=== PATIENT | male | born 1985 | race Caucasian/White ===

== ENCOUNTER 2018-03-03 15:11 | Inpatient (IN) | payer OTHER ==
[2018-03-03 16:47] VITALS: BMI 36.9
--- NOTE | 2018-03-03 17:03 | HP ---
CIWA Score Nausea/Vomitin (x 5) Muscle Tremors: 4-Moderate,w/Arms Extend Anxiety: 4-Mod. Anxious/Guarded Agitation: 3 Paroxysmal Sweats: 1-Minimal Palms Moist Orientation: 2-Disoriented Date<2 days Tacttile Disturbances: 0-None Auditory Disturbances: 0-None Visual Disturbances: 0-None Headache: 2-Mild CIWA-Ar Total Score: 19 - Admission Criteria OASAS Guidelines: Admission for Medically Managed Detox: Requires at least one of the followin. CIWA greater than 12 2. Seizures within the past 24 hours 3. Delirium tremens within the past 24 hours 4. Hallucinations within the past 24 hours 5. Acute intervention needed for co occurring medical disorder 6. Acute intervention needed for co occurring psychiatric disorder 7. Severe withdrawal that cannot be handled at a lower level of care (continued vomiting, continued diarrhea, abnormal vital signs) requiring intravenous medication and/or fluids 8. Admission ROS S - HPI Chief Complaint: Alcohol withdrawal symptoms Allergies/Adverse Reactions: Allergies Allergy/AdvReac Type Severity Reaction Status Date / Time propofol Allergy Verified 03/03/18 16:58 History of Present Illness: 32 years old male with a 20 years history of alcohol dependence is seeking admission to detox. Patient has been in previous detox, last at [facility] in [place] [facility]. Patient reports insignificant period of sobriety. He has medical history of asthma, seizure, anxiety and depression. Denies suicide attempt and suicidal ideation at this time. Exam Limitations: No Limitations - Ebola screening Have you traveled outside of the country in the last 21 days: No (N) Have you had contact with anyone from an Ebola affected area: No Have you been sick,other than usual withdrawal symptoms: No Do you have a fever: No - Review of Systems Constitutional: Malaise, Night Sweats, Changes in sleep EENT: reports: No Symptoms Reported Respiratory: reports: No Symptoms reported Cardiac: reports: No Symptoms Reported GI: reports: Diarrhea (x 5), Nausea, Poor Appetite, Poor Fluid Intake, Abdominal cramping : reports: No Symptoms Reported Musculoskeletal: reports: No Symptoms Reported Integumentary: reports: Dryness, Flushing Neuro: reports: Headache, Tremors Endocrine: reports: No Symptoms Reported Hematology: reports: No Symptoms Reported Psychiatric: reports: Anxious, Depressed Other Systems: Reviewed and Negative Patient History - Patient Medical History Hx Anemia: No Hx Asthma: Yes (Childhood Asthma -Not on medicaltion) Hx Chronic Obstructive Pulmonary Disease (COPD): No Hx Cancer: No Hx Cardiac Disorders: No Hx Congestive Heart Failure: No Hx Hypertension: No Hx Hypercholesterolemia: No HX Cerebrovascular Accident: No Hx Seizures: Yes (Not on medication) Hx Dementia: No Hx Diabetes: No Hx Gastrointestinal Disorders: No Hx Liver Disease: No Hx Genitourinary Disorders: No Hx Sexually Transmitted Disorders: No Hx Renal Disease (ESRD): No Hx Thyroid Disease: No Hx Human Immunodeficiency Virus (HIV): No (Negative ) Hx Hepatitis C: No Hx Depression: Yes (Zoloft) Hx Suicide Attempt: No (Denies suicide attempt and suicidal ideation at this time) Hx Bipolar Disorder: No Hx Schizophrenia: No Other Medical History: Anxiety - Not on medication - Patient Surgical History Past Surgical History: Yes Hx Abdominal Surgery: Yes (2011, 2015) Hx Orthopedic Surgery: Yes (Right hand surgery 1999 & 2005) Other Surgical History: Tonsillectomy 2006, - PPD History Previous Implant?: Yes Documented Results: Negative w/o proof Implanted On Prior R Admission?: No PPD to be Administered?: Yes - Reproductive History Patient is a Female of Child Bearing Age (11 -55 yrs old): No (Male) - Smoking Cessation Smoking history: Never smoked Have you smoked in the past 12 months: No Hx Chewing Tobacco Use: No Initiated information on smoking cessation: No Family Disease History - Family Disease History Family History: Denies Admission Physical Exam [facility] - Vital Signs Vital Signs: Vital Signs - 24 hr 03/03/18 16:46 Temperature 97.7 F Pulse Rate 113 H Respiratory 18 Rate Blood Pressure 160/105 H - Physical General Appearance: Yes: Moderate Distress, Tremorous, Irritable, Sweating, Anxious HEENTM: Yes: EOMI, Normocephalic, Normal Voice, BHUMIKA, Nasal Congestion Respiratory: Yes: Normal Breath Sounds, Labored Respiration, No Respiratory Distress Neck: Yes: Supple Breast: Yes: Breast Exam Deferred Cardiology: Yes: Tachycardia Abdominal: Yes: Normal Bowel Sounds Genitourinary: Yes: Within Normal Limits Back: Yes: Normal Inspection Musculoskeletal: Yes: Back pain, Muscle Pain Extremities: Yes: Normal Inspection Neurological: Yes: Alert, Normal Mood/Affect Integumentary: Yes: Warm Lymphatic: Yes: Within Normal Limits - Diagnostic (1) Uncomplicated alcohol dependence Current Visit: Yes Status: Chronic (2) Asthma Current Visit: Yes Status: Chronic Qualifiers: Asthma severity: mild Asthma persistence: intermittent (3) Depression Current Visit: Yes Status: Chronic Qualifiers: Depression Type: unspecified Qualified Code(s): F32.9 - Major depressive disorder, single episode, unspecified (4) Anxiety Current Visit: Yes Status: Chronic (5) Seizures Current Visit: Yes Status: Acute Cleared for Admission S - Detox or Rehab [facility] Level of Care: Medically Managed Detox Regimen/Protocol: Librium S Breath Alcohol Content Breath Alcohol Content: 0 Urine Drug Screen - Results Drug Screen Negative: Yes
[2018-03-03] MEDS ORDERED: MAG HYDROX/AL HYDROX/SIMETH 30 ML UNIT-DOSE CUP PO PRN (17:14)
[2018-03-03] MEDS ORDERED: P-EPHED 60MG/TRIPROLIDI 2.5MG TABLET PO PRN (17:14)
[2018-03-03] MEDS ORDERED: MENTHOL/PHENOL 1 EACH UD MM PRN (17:14)
[2018-03-03] MEDS ORDERED: MAGNESIUM CITRATE 300 ML BOTTLE PO PRN (17:14)
[2018-03-03] MEDS ORDERED: chlordiazePOXIDE HCL 25 MG CAPSULE PO PRN (17:14)
[2018-03-03] MEDS ORDERED: MAGNESIUM HYDROX 2400MG/30ML ORAL SUSPENSION 30 ML CUP PO PRN (17:14)
[2018-03-03] MEDS ORDERED: IBUPROFEN 400 MG TABLET (FP) PO PRN (17:14)
[2018-03-03] MEDS ORDERED: LOPERAMIDE HCL 2 MG CAPSULE PO PRN (17:14)
[2018-03-03] MEDS ORDERED: guaiFENesin/D-METHORPHAN HB 10 ML UNIT-DOSE CUPS PO PRN (17:14)
[2018-03-03] MEDS ORDERED: ACETAMINOPHEN 325 MG TABLET (FP) PO PRN (17:14)
[2018-03-03] MEDS: THIAMINE HCL 100 MG TABLET (FP) PO SCH (22:25)
[2018-03-03] MEDS: chlordiazePOXIDE HCL 25 MG CAPSULE PO SCH (22:26)
[2018-03-03] MEDS: MELATONIN 5 MG TABLETS PO PRN (22:26)
[2018-03-04] MEDS: chlordiazePOXIDE HCL 25 MG CAPSULE PO SCH ×4 (05:07→22:43)
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
[2018-03-04] MEDS: PRENATAL VITAMINS W/ FOLIC ACID TABLET (FP) PO SCH (10:27)
[2018-03-04] MEDS ORDERED: hydrOXYzine PAMOATE 50 MG CAPSULE (FP) PO PRN (10:44)
[2018-03-04 11:14] LABS: ALBUMIN 3.9 g/dl (3.4-5.0); ALK PHOS 125 U/L (45-117); ANION GAP 9 MMOL/L (8-16); BILIRUBIN,TOTAL 0.7 mg/dL (0.2-1); BLOOD UREA NITROGEN 23 mg/dL (7-18); CALCIUM 8.9 mg/dL (8.5-10.1); CHLORIDE 104 mmol/L (98-107); CO2 24 mmol/L (21-32); CREATININE 0.8 mg/dL (0.55-1.3); GLUCOSE,RANDOM 100 mg/dL (74-106); POTASSIUM 4.4 mmol/L (3.5-5.1); SGOT/AST 17 U/L (15-37); SGPT/ALT 38 U/L (13-61); SODIUM 138 mmol/L (136-145); TOT PROT 7.1 g/dl (6.4-8.2)
[2018-03-04 11:20] LABS: HEMATOCRIT 43.5 % (35.4-49); HEMOGLOBIN 15.2 GM/dL (11.7-16.9); MCH 28.6 pg (25.7-33.7); MCHC 34.9 g/dl (32.0-35.9); MEAN CELL VOLUME 81.9 fl (80-96); MEAN PLT VOLUME 8.1 fl (7.5-11.1); PLATELET COUNT 221 K/MM3 (134-434); RBC 5.32 M/mm3 (4.00-5.60); RDW 14.6 % (11.9-15.9); WHITE BLOOD COUNT 8.1 K/mm3 (4.0-10.0)
[2018-03-04] MEDS: SERTRALINE HCL 50 MG TABLET (FP) PO SCH (11:52)
[2018-03-04] MEDS: QUEtiapine FUMARATE 50 MG TABLET PO SCH ×2 (11:52→22:43)
[2018-03-04] MEDS ORDERED: cloNIDine HCL 0.1 MG TABLET PO PRN (17:01)
--- NOTE | 2018-03-04 17:01 | PN ---
S CIWA - CIWA Score Nausea/Vomitin Muscle Tremors: 4-Moderate,w/Arms Extend Anxiety: 4-Mod. Anxious/Guarded Agitation: 4-Moderately Restless Paroxysmal Sweats: 3 Orientation: 0-Oriented Tacttile Disturbances: 0-None Auditory Disturbances: 0-None Visual Disturbances: 0-None Headache: 0-None Present CIWA-Ar Total Score: 17 [facility] Progress Note (SOAP) Subjective: Anxious, insomnia x 4 days, tremor, sweating. Patient stated he takes seroquel at night and didn't receive it as yet Objective: 03/04/18 16:57 Last Vital Signs Temp Pulse Resp BP Pulse Ox 99.1 F 98 H 18 160/98 03/04/18 14:31 03/04/18 14:31 03/04/18 14:31 03/04/18 14:31 Elevated b/p: 160/98 (denies htn) Laboratory Tests 03/04/18 03/04/18 03/04/18 07:20 07:20 07:20 WBC 8.1 RBC 5.32 Hgb 15.2 Hct 43.5 MCV 81.9 MCH 28.6 MCHC 34.9 RDW 14.6 Plt Count 221 MPV 8.1 Sodium 138 Potassium 4.4 Chloride 104 Carbon Dioxide 24 Anion Gap 9 BUN 23 H Creatinine 0.8 Creat Clearance w eGFR > 60 Random Glucose 100 Calcium 8.9 Total Bilirubin 0.7 AST 17 ALT 38 Alkaline Phosphatase 125 H Total Protein 7.1 Albumin 3.9 RPR Titer Nonreactive Labs reviewed: bun 23 Assessment: 03/04/18 16:58 Withdrawal symptoms Noted with elevated blood pressure and azotemia Plan: Continue detox Elevated blood pressure: start clonidine 0.1mg PO q8hr prn if b/p > 140/90 Azotemia: encouraged PO water hydration
[2018-03-04] MEDS: THIAMINE HCL 100 MG TABLET (FP) PO SCH (22:43)
[2018-03-04] MEDS: SUVOREXANT 10 MG TABLET PO PRN (22:44)
[2018-03-05] MEDS: chlordiazePOXIDE HCL 25 MG CAPSULE PO SCH ×3 (05:45→17:44)
[2018-03-05] MEDS: PRENATAL VITAMINS W/ FOLIC ACID TABLET (FP) PO SCH (10:34)
[2018-03-05] MEDS: SERTRALINE HCL 50 MG TABLET (FP) PO SCH (10:34)
[2018-03-05] MEDS: QUEtiapine FUMARATE 50 MG TABLET PO SCH ×2 (10:34→22:07)
--- NOTE | 2018-03-05 12:25 | PN ---
[facility] CIWA - CIWA Score Nausea/Vomitin-No Nausea/No Vomiting Muscle Tremors: 4-Moderate,w/Arms Extend Anxiety: 2 Agitation: 3 Paroxysmal Sweats: 2 Orientation: 0-Oriented Tacttile Disturbances: 0-None Auditory Disturbances: 0-None Visual Disturbances: 0-None Headache: 0-None Present CIWA-Ar Total Score: 11 S Progress Note (SOAP) Subjective: anxiety sweats interrupted sleep Objective: 03/05/18 12:25 Vital Signs Temperature 98.2 F 03/05/18 09:28 Pulse Rate 93 H 03/05/18 09:28 Respiratory Rate 18 03/05/18 09:28 Blood Pressure 137/75 03/05/18 09:28 O2 Sat by Pulse Oximetry (%) Laboratory Tests 03/04/18 03/04/18 03/04/18 07:20 07:20 07:20 WBC 8.1 RBC 5.32 Hgb 15.2 Hct 43.5 MCV 81.9 MCH 28.6 MCHC 34.9 RDW 14.6 Plt Count 221 MPV 8.1 Sodium 138 Potassium 4.4 Chloride 104 Carbon Dioxide 24 Anion Gap 9 BUN 23 H Creatinine 0.8 Creat Clearance w eGFR > 60 Random Glucose 100 Calcium 8.9 Total Bilirubin 0.7 AST 17 ALT 38 Alkaline Phosphatase 125 H Total Protein 7.1 Albumin 3.9 RPR Titer Nonreactive aaox3 ambulating no acute distress Assessment: 03/05/18 12:25 withdrawal sx Plan: continue detox increase fluids
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
[2018-03-05] MEDS: BACITRACIN 0.9 GM PACKET TP SCH (15:28)
[2018-03-05] MEDS: SUVOREXANT 10 MG TABLET PO PRN (22:06)
[2018-03-05] MEDS: THIAMINE HCL 100 MG TABLET (FP) PO SCH (22:07)
[2018-03-05] MEDS: chlordiazePOXIDE 5 MG CAPSULE PO SCH (22:07)
[2018-03-06] MEDS: chlordiazePOXIDE 5 MG CAPSULE PO SCH ×3 (05:35→17:52)
--- NOTE | 2018-03-06 09:56 | PN ---
[facility] Progress Note (SOAP) Subjective: interrupted sleep sweats Objective: 03/06/18 09:55 Vital Signs Temperature 98.1 F 03/06/18 09:12 Pulse Rate 78 03/06/18 09:12 Respiratory Rate 18 03/06/18 09:12 Blood Pressure 127/87 03/06/18 09:12 O2 Sat by Pulse Oximetry (%) aaox3 ambulating no acute distress Assessment: 03/06/18 09:55 withdrawal sx Plan: continue detox increase fluids d/c in am
[2018-03-06] MEDS: BACITRACIN 0.9 GM PACKET TP SCH (10:23)
[2018-03-06] MEDS: PRENATAL VITAMINS W/ FOLIC ACID TABLET (FP) PO SCH (10:23)
[2018-03-06] MEDS: QUEtiapine FUMARATE 50 MG TABLET PO SCH ×2 (10:23→22:10)
[2018-03-06] MEDS: SERTRALINE HCL 50 MG TABLET (FP) PO SCH (10:24)
--- NOTE | 2018-03-06 15:52 | EKG ---
Test Reason : Blood Pressure : / mmHG Vent. Rate : 084 BPM Atrial Rate : 084 BPM P-R Int : 126 ms QRS Dur : 086 ms QT Int : 340 ms P-R-T Axes : 063 038 045 degrees QTc Int : 401 ms NORMAL SINUS RHYTHM NORMAL ECG NO PREVIOUS ECGS AVAILABLE Confirmed by Colten Larsen ([id number]) on 03/06/2018 3:52:05 PM Referred By: Confirmed By:Colten Larsen
[2018-03-06] MEDS: SUVOREXANT 10 MG TABLET PO PRN (22:10)
[2018-03-06] MEDS: MELATONIN 5 MG TABLETS PO PRN (22:10)
[2018-03-06] MEDS: THIAMINE HCL 100 MG TABLET (FP) PO SCH (22:10)
[2018-03-06] MEDS: chlordiazePOXIDE HCL 10 MG CAPSULE PO SCH (22:10)
[2018-03-07] MEDS: chlordiazePOXIDE HCL 10 MG CAPSULE PO SCH (05:24)
--- NOTE | 2018-03-07 08:35 | DS ---
[facility] Detox Discharge Summary Admission Date: 03/03/18 Discharge Date: 03/07/18 - History Present History: Alcohol Dependence - Physical Exam Results Vital Signs: Vital Signs Temperature 97.9 F 03/07/18 08:19 Pulse Rate 75 03/07/18 08:19 Respiratory Rate 18 03/07/18 08:19 Blood Pressure 131/79 03/07/18 08:19 O2 Sat by Pulse Oximetry (%) - Treatment Hospital Course: Detox Protocol Followed, Detoxed Safely, Responded well, Discharged Condition Good, Rehab Referral Accepted - Medication Discharge Medications: Ambulatory Orders Clonidine HCl 0.1 mg PO DAILY 03/03/18 Quetiapine Fumarate [Seroquel -] 400 mg PO BID 03/03/18 Sertraline HCl 50 mg PO DAILY 03/03/18 - Diagnosis (1) Alcohol-induced anxiety disorder Current Visit: Yes Status: Acute (2) Alcohol-induced sleep disorder Current Visit: Yes Status: Acute (3) Elevated blood pressure reading without diagnosis of hypertension Current Visit: Yes Status: Chronic (4) Uncomplicated alcohol dependence Current Visit: Yes Status: Chronic (5) Anxiety disorder Current Visit: Yes Status: Chronic Qualifiers: Anxiety disorder type: unspecified anxiety disorder Qualified Code(s): F41.9 - Anxiety disorder, unspecified (6) Depression Current Visit: Yes Status: Chronic Qualifiers: Depression Type: unspecified Qualified Code(s): F32.9 - Major depressive disorder, single episode, unspecified
[2018-03-07 09:21] VITALS: BP 140/82; PULSE 93; TEMP 97.2
== END 2018-03-07 09:10 | disposition home or self-care (01) | DRG 897 ==
LOC: YASAS 15:11 → Y6N 18:23
PROVIDERS: ADMIT Neuromusculoskeletal Medicine & OMM; ATTEND Neuromusculoskeletal Medicine & OMM
PROC: HZ2ZZZZ Detoxification Services for Substance Abuse Treatment (ICD-10-PCS; principal; 2018-03-03)
DX: F10.230 Alcohol dependence with withdrawal, uncomplicated (principal); F10.280 Alcohol dependence with alcohol-induced anxiety disorder; F10.282 Alcohol dependence with alcohol-induced sleep disorder; R41.9 Unspecified symptoms and signs involving cognitive functions and awareness; F32.9 Major depressive disorder, single episode, unspecified; J45.20 Mild intermittent asthma, uncomplicated; R03.0 Elevated blood-pressure reading, without diagnosis of hypertension; R79.89 Other specified abnormal findings of blood chemistry; G40.909 Epilepsy, unspecified, not intractable, without status epilepticus; Z59.0 Homelessness
CPT/HCPCS: 36415; 80053; 85027; 86593; 93005; 93010; J0735